=== PATIENT | male | born 1975 | race African-American/Black ===

== ENCOUNTER 2021-08-19 10:42 | Emergency (ER) | payer OTHER ==
[~2021-08-19] VITALS: Ht 180.3 cm; Wt 99.8 kg
[2021-08-19] MEDS ORDERED: HYDROCHLOROTH12.5 M2 PO (10:55)
[2021-08-19] MEDS ORDERED: PROAIR HFA8.5 GM INH (12:53)
[2021-08-19] MEDS ORDERED: MEDROLDOSEPACK PO (12:53)
[2021-08-19 13:05] VITALS: BP 153/96
== END 2021-08-19 13:05 | disposition home or self-care (01) ==
LOC: ER 10:42
DX: J06.9 Acute upper respiratory infection, unspecified (principal); Z20.822 Contact with and (suspected) exposure to COVID-19; J45.909 Unspecified asthma, uncomplicated; R05.9 Cough, unspecified; Z79.899 Other long term (current) drug therapy; Z88.0 Allergy status to penicillin